=== PATIENT | male | born 1970 | race Caucasian/White ===

== ENCOUNTER 2016-08-16 08:28 | Emergency (ER) | payer OTHER ==
--- NOTE | 2016-08-16 09:47 | RAD ---
Indication: Chest pain. Single frontal view of the chest performed at 0925 hours was reviewed. Comparison is made with previous exam dated March 14, 2014. No mediastinal shift is noted. Heart is of normal size and configuration. Lung locke appear clear. Patient is status post changed sternal thoracotomy. IMPRESSION: NO ACTIVE CARDIOPULMONARY DISEASE IS NOTED.
[2016-08-16 10:54] LABS: Hematocrit 35 % (42-52); Hemoglobin 12.1 g/dl (14.0-18.0); Mean Corpuscular HGB Conc 35 g/dl (31-36); Mean Corpuscular Hemoglobin 29 pg (27-31); Mean Corpuscular Volume 84 fL (80-94); Mean Platelet Volume 10 um3 (7.4-10.4); Red Blood Count 4.12 10^6/ul (4.0-5.4); Red Cell Distribution Width 13 % (10.5-15); White Blood Count 8.5 10^3/ul (3.5-10.8)
[2016-08-16 10:58] LABS: Comments Flag Yes
[2016-08-16 10:59] LABS: Add Diff/Slide Review? Slide Review Added
[2016-08-16 11:08] LABS: Albumin 3.9 g/dL (3.2-5.2); BUN/Creatinine Ratio 36.7 (8-20); Calcium 9.3 mg/dL (8.6-10.3); EGFR African American 135.2 (>60); EGFR Non-African American 105.1 (>60); Globulin 2.7 g/dL (2-4); Potassium 3.8 mmol/L (3.5-5.0); Total Bilirubin 1.3 mg/dL (0.2-1.0); Total Protein 6.6 g/dL (6.4-8.9)
[2016-08-16 11:09] LABS: Troponin I 0.01 ng/mL (<0.04)
[2016-08-16 11:33] LABS: C Reactive Protein 21.28 mg/L (< 5.00)
[2016-08-16 13:24] LABS: Erythrocyte Sed Rate 19 mm/Hr (0-14)
[2016-08-16 14:11] VITALS: BP 106/71
--- NOTE | 2016-08-18 20:09 | ED ---
Mk Roa Salem, scribed for Henry Bauer MD on 08/16/16 at 1022 . HPI Chest Pain - HPI Summary HPI Summary: Patient is a 72 y/o male who presents to the ED with intermittent mild to moderate CP for a week. He reports CP returned this yesterday, but he has no pain currently. He describes the pain as achy, but not sharp and localized on the left side. Pain is worsened with exertion (lifting 25lbs dog). He denies vomiting or nausea, but reports a low fever of 100. He reports taking Ibuprofen for pericarditis with little alleviation of pain. He had surgery in 2013 and fell on his chest a year after the surgery. Pt has had pericarditis since. - History of Current Complaint Chief Complaint: EDChestWallPain Time Seen by Provider: 08/16/16 09:04 Hx Obtained From: Patient Onset/Duration: Started Days Ago Timing: Intermittent Initial Severity: Moderate Current Severity: Moderate Pain Intensity: 1 Pain Scale Used: 0-10 Numeric Chest Pain Location: Left Anterior Character: Dull/Aching Aggravating Factor(s): Exertion Alleviating Factor(s): Nothing Associated Signs and Symptoms: Positive: Fever - Subjective fever of 100F.. Negative: Nausea, Vomiting - Allergy/Home Medications Allergies/Adverse Reactions: Allergies Allergy/AdvReac Type Severity Reaction Status Date / Time Penicillins Allergy Unknown Unknown Verified 10/25/14 14:36 Reaction Details "CILLINS" Allergy Unknown Unknown Uncoded 10/25/14 14:36 Reaction Details PMH/Surg Hx/FS Hx/Imm Hx Cardiovascular History: Reports: Other Cardiovascular Problems/Disorders - AORTIC STENOSIS Denies: Hx Congestive Heart Failure, Hx Hypertension, Hx Pacemaker/ICD GI History: Reports: Hx Gastroesophageal Reflux Disease Musculoskeletal History: Reports: Hx Back Problems - Cancer History Hx Chemotherapy: No Hx Radiation Therapy: No Hx Palliative Cancer Treatment: No - Surgical History Surgery Procedure, Year, and Place: aortic valve replacement. open heart surgery 12/2013 Hx Anesthesia Reactions: No Infectious Disease History: No Infectious Disease History: Denies: Traveled Outside the [place] in Last 30 Days - Family History Known Family History: Negative: Cardiac Disease, Diabetes - Social History Alcohol Use: None Hx Substance Use: No Substance Use Type: Reports: None Hx Tobacco Use: No Smoking Status (MU): Never Smoked Tobacco Have You Smoked in the Last Year: No Review of Systems Positive: Fever - Mild - 100F. Positive: Chest Pain Negative: Vomiting, Nausea All Other Systems Reviewed And Are Negative: Yes Physical Exam Triage Information Reviewed: Yes Vital Signs On Initial Exam: Initial Vitals Temp Pulse Resp BP Pulse Ox 99.8 F 57 18 122/76 99 08/16/16 08:38 08/16/16 08:38 08/16/16 08:38 08/16/16 08:38 08/16/16 08:38 Vital Signs Reviewed: Yes Appearance: Positive: Well-Appearing, No Pain Distress Skin: Positive: Warm, Skin Color Reflects Adequate Perfusion, Dry Head/Face: Positive: Normal Head/Face Inspection Eyes: Positive: Normal Neck: Positive: Supple, Nontender Respiratory/Lung Sounds: Positive: Other - Murmur. Loud holistically transmitted to neck and all over chest. Cardiovascular: Positive: RRR Abdomen Description: Positive: Nontender, Soft Bowel Sounds: Positive: Present Musculoskeletal: Positive: Normal Neurological: Positive: Normal Psychiatric: Positive: Normal, Affect/Mood Appropriate Diagnostics - Vital Signs Vital Signs Temp Pulse Resp BP Pulse Ox 08/16/16 08:38 99.8 F 57 18 122/76 99 - Laboratory Lab Results: Lab Results 08/16/16 08/16/16 08/16/16 Range/Units 10:18 10:18 10:18 WBC 8.5 (3.5-10.8) 10^3/ul RBC 4.12 (4.0-5.4) 10^6/ul Hgb 12.1 L (14.0-18.0) g/dl Hct 35 L (42-52) % MCV 84 (80-94) fL MCH 29 (27-31) pg MCHC 35 (31-36) g/dl RDW 13 (10.5-15) % Plt Count 98 L (150-450) 10^3/ul MPV 10 (7.4-10.4) um3 Neut % (Auto) 80.4 (38-83) % Lymph % (Auto) 11.6 L (25-47) % [place] % (Auto) 7.6 (1-9) % Eos % (Auto) 0.2 (0-6) % Baso % (Auto) 0.2 (0-2) % Absolute Neuts (auto) 6.8 (1.5-7.7) 10^3/ul Absolute Lymphs (auto) 1.0 (1.0-4.8) 10^3/ul Absolute Monos (auto) 0.6 (0-0.8) 10^3/ul Absolute Eos (auto) 0 (0-0.6) 10^3/ul Absolute Basos (auto) 0 (0-0.2) 10^3/ul Absolute Nucleated RBC 0 10^3/ul Nucleated RBC % 0 ESR 19 H (0-14) mm/Hr D-Dimer, Quantitative (Less Than 230) ng/mL Sodium 137 (133-145) mmol/L Potassium 3.8 (3.5-5.0) mmol/L Chloride 105 (101-111) mmol/L Carbon Dioxide 24 (22-32) mmol/L Anion Gap 8 (2-11) mmol/L BUN 29 H (6-24) mg/dL Creatinine 0.79 (0.67-1.17) mg/dL Est GFR ( Amer) 135.2 (>60) Est GFR (Non-Af Amer) 105.1 (>60) BUN/Creatinine Ratio 36.7 H (8-20) Glucose 86 (70-100) mg/dL Lactic Acid 0.5 (0.5-2.0) mmol/L Calcium 9.3 (8.6-10.3) mg/dL Total Bilirubin 1.30 H (0.2-1.0) mg/dL AST 26 (13-39) U/L ALT 44 (7-52) U/L Alkaline Phosphatase 86 (34-104) U/L Total Creatine Kinase 53 (10-223) U/L CK-MB (CK-2) 2.3 (0.6-6.3) ng/mL Troponin I 0.01 (<0.04) ng/mL C-Reactive Protein 21.28 H (< 5.00) mg/L B-Natriuretic Peptide ( - 100) pg/mL Total Protein 6.6 (6.4-8.9) g/dL Albumin 3.9 (3.2-5.2) g/dL Globulin 2.7 (2-4) g/dL Albumin/Globulin Ratio 1.4 (1-3) 08/16/16 08/16/16 Range/Units 10:18 10:18 WBC (3.5-10.8) 10^3/ul RBC (4.0-5.4) 10^6/ul Hgb (14.0-18.0) g/dl Hct (42-52) % MCV (80-94) fL MCH (27-31) pg MCHC (31-36) g/dl RDW (10.5-15) % Plt Count (150-450) 10^3/ul MPV (7.4-10.4) um3 Neut % (Auto) (38-83) % Lymph % (Auto) (25-47) % [place] % (Auto) (1-9) % Eos % (Auto) (0-6) % Baso % (Auto) (0-2) % Absolute Neuts (auto) (1.5-7.7) 10^3/ul Absolute Lymphs (auto) (1.0-4.8) 10^3/ul Absolute Monos (auto) (0-0.8) 10^3/ul Absolute Eos (auto) (0-0.6) 10^3/ul Absolute Basos (auto) (0-0.2) 10^3/ul Absolute Nucleated RBC 10^3/ul Nucleated RBC % ESR (0-14) mm/Hr D-Dimer, Quantitative < 200 (Less Than 230) ng/mL Sodium (133-145) mmol/L Potassium (3.5-5.0) mmol/L Chloride (101-111) mmol/L Carbon Dioxide (22-32) mmol/L Anion Gap (2-11) mmol/L BUN (6-24) mg/dL Creatinine (0.67-1.17) mg/dL Est GFR ( Amer) (>60) Est GFR (Non-Af Amer) (>60) BUN/Creatinine Ratio (8-20) Glucose (70-100) mg/dL Lactic Acid (0.5-2.0) mmol/L Calcium (8.6-10.3) mg/dL Total Bilirubin (0.2-1.0) mg/dL AST (13-39) U/L ALT (7-52) U/L Alkaline Phosphatase (34-104) U/L Total Creatine Kinase (10-223) U/L CK-MB (CK-2) (0.6-6.3) ng/mL Troponin I (<0.04) ng/mL C-Reactive Protein (< 5.00) mg/L B-Natriuretic Peptide 121 H ( - 100) pg/mL Total Protein (6.4-8.9) g/dL Albumin (3.2-5.2) g/dL Globulin (2-4) g/dL Albumin/Globulin Ratio (1-3) Result Diagrams: 08/16/16 10:18 08/16/16 10:18 Lab Statement: Any lab studies that have been ordered have been reviewed, and results considered in the medical decision making process. - Radiology CXR Radiology Interpretation Completed By: Radiologist - IMPRESSION: NO ACTIVE CARDIOPULMONARY DISEASE IS NOTED. - EKG 0829 Cardiac Rate: Bradycardia - 60 bpm. EKG Interpretation: Sinus bradycardia. Diffuse nonspecific ST/T changes Re-Evaluation - Re-Evaluation First Eval Re-Evaluation Time: 13:53 Comment: Discussed results and plan with pt. Pt is agreable. Chest Pain Course/Dx - Course Course Of Treatment: Mr. Fela Kim's main concern was whether or not he had a recurrenco of his pericarditis. His W/U here showed only a very slight elevation of ESR and CRP and I recommended that he use ibuprofen transiently. - Diagnoses Provider Diagnoses: Chest wall pain Discharge - Discharge Plan Condition: Stable Disposition: HOME Patient Education Materials: Ibuprofen (By mouth), Chest Wall Pain (ED) Referrals: Nancy Reis MD [Primary Care Provider] - Additional Instructions: Follow up with PCP. The documentation as recorded by the Mk ramos Salem accurately reflects the service I personally performed and the decisions made by me, Henry Bauer MD.
== END 2016-08-16 14:11 | disposition home or self-care (01) ==
LOC: ED 08:28
DX: R07.89 Other chest pain (principal); R50.9 Fever, unspecified
CPT/HCPCS: 36415; 71010; 80053; 82550; 82553; 83605; 83880; 84484; 85025; 85379; 85652; 86140; 93005; 99282

== ENCOUNTER 2016-09-20 16:28 | Inpatient (IN) | payer OTHER ==
[2016-09-20 18:22] LABS: BUN/Creatinine Ratio 21.6 (8-20); C Reactive Protein 24.52 mg/L (< 5.00); Calcium 9.4 mg/dL (8.6-10.3); EGFR African American 119.4 (>60); EGFR Non-African American 92.8 (>60); Potassium 3.9 mmol/L (3.5-5.0)
[2016-09-20 18:26] LABS: Hematocrit 34 % (42-52); Hemoglobin 11.2 g/dl (14.0-18.0); Mean Corpuscular HGB Conc 33 g/dl (31-36); Mean Corpuscular Hemoglobin 27 pg (27-31); Mean Corpuscular Volume 83 fL (80-94); Mean Platelet Volume 9 um3 (7.4-10.4); Red Blood Count 4.08 10^6/ul (4.0-5.4); Red Cell Distribution Width 14 % (10.5-15); White Blood Count 8.4 10^3/ul (3.5-10.8)
[2016-09-20] MEDS ORDERED: Acetaminophen TAB* 325 MG PO PRN (18:39)
[2016-09-20] MEDS ORDERED: Metoprolol Tartrate TAB* 50 mg PO SCH (21:00)
--- NOTE | 2016-09-20 21:46 | ED ---
Mk Roa Salem, scribed for Henry Bauer MD on 09/20/16 at 1752 . HPI Febrile Illness - HPI Summary HPI Summary: Patient is a 46 y/o male who presents to the ED with a positive blood culture since yesterday. He reports he was in the ER in early August with muscular skeletal inflammation. He states that his sx persisted after being seen and then put on Zithromax for bronchitis. He reports that his sx continued after finishing the abx and so he saw his PCP yesterday. Pt reports pain in his back, shoulders, and lateral chest area. - History of Current Complaint Chief Complaint: EDFever Time Seen by Provider: 09/20/16 17:33 Hx Obtained From: Patient Onset/Duration: Started Days Ago, Still Present Timing: Constant Initial Severity: Moderate Current Severity: Moderate Pain Intensity: 2 Pain Scale Used: 0-10 Numeric Aggravating Factors: Nothing Alleviating Factors: Nothing Associated Signs and Symptoms: Other: - Pain in back, shoulders, and lateral chest area. - Allergy/Home Medications Allergies/Adverse Reactions: Allergies Allergy/AdvReac Type Severity Reaction Status Date / Time Penicillins Allergy Unknown Unknown Verified 09/20/16 16:40 Reaction Details "CILLINS" Allergy Unknown Unknown Uncoded 09/20/16 16:40 Reaction Details Home Medications: Home Medications Colchicine* [Colcrys*] 0.6 mg PO DAILY PRN 09/20/16 [History Confirmed 09/20/16] Ergocalciferol CAP* [Drisdol CAP*] 50,000 unit PO Q7D 09/20/16 [History Confirmed 09/20/16] Ibuprofen TAB* [Advil TAB*] 400 mg PO Q6H PRN 09/20/16 [History Confirmed ] Magnesium Oxide TAB* [MagOx 400 TAB*] 400 mg PO DAILY 09/20/16 [History Confirmed 09/20/16] Metoprolol Tartrate TAB* [Lopressor TAB*] 25 mg PO BID 09/20/16 [History Confirmed 09/20/16] Multiple Vitamins W/ Minerals [Multivitamin Men] 1 tab PO DAILY 09/20/16 [ History Confirmed 09/20/16] [place]-3 Fatty Acids (Nf) [Fish Oil (NF)] 1,000 mg PO DAILY 09/20/16 [History Confirmed 09/20/16] Potassium 75 mg PO DAILY 09/20/16 [History Confirmed 09/20/16] PMH/Surg Hx/FS Hx/Imm Hx Cardiovascular History: Reports: Other Cardiovascular Problems/Disorders - AORTIC STENOSIS Denies: Hx Congestive Heart Failure, Hx Hypertension, Hx Pacemaker/ICD GI History: Reports: Hx Gastroesophageal Reflux Disease Musculoskeletal History: Reports: Hx Back Problems - Cancer History Hx Chemotherapy: No Hx Radiation Therapy: No Hx Palliative Cancer Treatment: No - Surgical History Surgery Procedure, Year, and Place: aortic valve replacement. open heart surgery 12/2013 Hx Anesthesia Reactions: No Infectious Disease History: No Infectious Disease History: Denies: Traveled Outside the [place] in Last 30 Days - Family History Known Family History: Negative: Cardiac Disease, Diabetes - Social History Alcohol Use: None Hx Substance Use: No Substance Use Type: Reports: None Hx Tobacco Use: No Smoking Status (MU): Never Smoked Tobacco Have You Smoked in the Last Year: No Review of Systems Positive: Fever Positive: Other - Pain in back, shoulders, and lateral chest area. All Other Systems Reviewed And Are Negative: Yes Physical Exam Triage Information Reviewed: Yes Vital Signs On Initial Exam: Initial Vitals Temp Pulse Resp BP Pulse Ox 98.5 F 63 16 132/74 100 09/20/16 16:41 09/20/16 16:41 09/20/16 16:41 09/20/16 16:41 09/20/16 16:41 Vital Signs Reviewed: Yes Appearance: Positive: Well-Appearing, No Pain Distress Skin: Positive: Warm, Skin Color Reflects Adequate Perfusion, Dry Head/Face: Positive: Normal Head/Face Inspection Eyes: Positive: Normal Neck: Positive: Supple, Nontender Respiratory/Lung Sounds: Positive: Clear to Auscultation, Breath Sounds Present Cardiovascular: Positive: Other - Soft systolic ejection Abdomen Description: Positive: Nontender, Soft Bowel Sounds: Positive: Present Musculoskeletal: Positive: Normal Neurological: Positive: Normal Psychiatric: Positive: Normal, Affect/Mood Appropriate Diagnostics - Vital Signs Vital Signs Temp Pulse Resp BP Pulse Ox 09/20/16 16:41 98.5 F 63 16 132/74 100 - Laboratory Lab Results: Lab Results 09/20/16 09/20/16 Range/Units 17:05 17:05 WBC 8.4 (3.5-10.8) 10^3/ul RBC 4.08 (4.0-5.4) 10^6/ul Hgb 11.2 L (14.0-18.0) g/dl Hct 34 L (42-52) % MCV 83 (80-94) fL MCH 27 (27-31) pg MCHC 33 (31-36) g/dl RDW 14 (10.5-15) % Plt Count 160 (150-450) 10^3/ul MPV 9 (7.4-10.4) um3 Neut % (Auto) 81.9 (38-83) % Lymph % (Auto) 10.5 L (25-47) % [place] % (Auto) 7.0 (1-9) % Eos % (Auto) 0.3 (0-6) % Baso % (Auto) 0.3 (0-2) % Absolute Neuts (auto) 6.9 (1.5-7.7) 10^3/ul Absolute Lymphs (auto) 0.9 L (1.0-4.8) 10^3/ul Absolute Monos (auto) 0.6 (0-0.8) 10^3/ul Absolute Eos (auto) 0 (0-0.6) 10^3/ul Absolute Basos (auto) 0 (0-0.2) 10^3/ul Absolute Nucleated RBC 0 10^3/ul Nucleated RBC % 0 Sodium 135 (133-145) mmol/L Potassium 3.9 (3.5-5.0) mmol/L Chloride 103 (101-111) mmol/L Carbon Dioxide 28 (22-32) mmol/L Anion Gap 4 (2-11) mmol/L BUN 19 (6-24) mg/dL Creatinine 0.88 (0.67-1.17) mg/dL Est GFR ( Amer) 119.4 (>60) Est GFR (Non-Af Amer) 92.8 (>60) BUN/Creatinine Ratio 21.6 H (8-20) Glucose 88 (70-100) mg/dL Calcium 9.4 (8.6-10.3) mg/dL C-Reactive Protein 24.52 H (< 5.00) mg/L Result Diagrams: 09/20/16 17:05 09/20/16 17:05 Lab Statement: Any lab studies that have been ordered have been reviewed, and results considered in the medical decision making process. Course/Dx - Course Course Of Treatment: Mr. Fela Kim has continued to have vague chest pain inspite of taking a course of anti-inflammatories and the a course of antibiotics. He reports low grade fevers and blood cultures were obtained by his PMD. A transthoracic echo was obtained and unchanged this AM and his blood culture preliminary is gram pos cocci in chains. He will be admitted for a transesophageal echo tomorrow and antibiotics with the concern for a possible endocarditis. - Diagnoses Provider Diagnoses: STREP BACTEREMIA - Provider Notifications Discussed Care Of Patient With: Dr. Reed (cardiology) @ [id number]. Dr. Mcdaniel ( hospitalist) @ [phone]. Discussed pts case. Discharge - Discharge Plan Condition: Stable Disposition: ADMITTED TO [facility] The documentation as recorded by the Mk ramos Salem accurately reflects the service I personally performed and the decisions made by , Henry Bauer MD.
[2016-09-20] MEDS: Metoprolol Tartrate TAB* 25 MG PO SCH (21:54)
[2016-09-20] MEDS: Ibuprofen TAB* 600 MG PO PRN (21:54)
--- NOTE | 2016-09-20 23:21 | HP ---
HOSPITAL MEDICINE HISTORY AND PHYSICAL: DATE OF ADMISSION: 09/20/16 PRIMARY CARE PROVIDER: Dr. Reis. ATTENDING PHYSICIAN: JNEI Mario (dictation provided by Catrina Marinelli NP) . CHIEF COMPLAINT: Fever and mild chest discomfort. HISTORY OF PRESENT ILLNESS: Mr. Fela Kim is a 46-year-old male with a past medical history of aortic valve replacement due to a bicuspid valve with a severe aortic stenosis. Back in 2013, the patient had a bioprosthetic valve placed. 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 He is followed outpatient by Dr. Fletcher. Mr. Fela Kim states that on August 05 he developed fever. Fever has been as high as 101. He has had ongoing fever since that time. He has had very mild discomfort in his chest and in his back, but nothing like the sharp pain he had when he had pericarditis. He has been able to lie flat with no problems. He has had no lower extremity edema. For this fever, he was seen in the emergency room on August 16. At that time he had a normal white blood cell count and essentially normal C-reactive protein. He was discharged from the emergency room. He did follow up with his primary care physician in 2 weeks when he continued to have fever. He saw someone in Dr. Reis's office. He thought perhaps he had a bronchitis based on his symptoms and he was started on azithromycin and told to return to the office if he did not feel better in 2 weeks. When he had no change, he went back to see Dr. Reis, who recommended that he come to have blood cultures drawn at the lab here at the hospital and also go on to see Dr. Fletcher for a transthoracic echocardiogram. Blood cultures were drawn yesterday. Today they have been found to be positive x 4 for gram-positive cocci resembling strep. The patient did see Dr. Fletcher for a transthoracic echocardiogram and per the verbal report, the aortic valve was functioning normally and no vegetation noted. In the emergency room today, Mr. Fela Kim has a C-reactive protein of 24.52. His white blood cell count is normal. His vitals signs are stable. He is breathing easily on room air. He has no significant systolic murmur. PAST MEDICAL HISTORY: 1. Bioprosthetic aortic valve replacement in 2013 at [facility]. 2. History of Deborah syndrome. 3. GERD. 4. Thoracic aneurysm. OUTPATIENT MEDICATIONS: 1. Magnesium oxide 250 mg p.o. b.i.d. 2. Colchicine 0.6 mg p.o. daily p.r.n. 3. Ergocalciferol 50,000 units p.o. q.7 days. 4. Glucosamine/chondroitin/vitamin C 1 tab p.o. daily. 5. Ibuprofen 400 mg p.o. q.6 hours p.r.n. 6. Multivitamin and mineral 1 tab p.o. daily. 7. [place]-3 fatty acid 1000 mg p.o. daily. 8. Potassium 75 mg p.o. daily. 9. Psyllium with calcium 1 cap p.o. b.i.d. 10. Famotidine 20 mg p.o. daily. 11. Metoprolol tartrate 25 mg p.o. b.i.d. ALLERGIES: PENICILLIN. FAMILY HISTORY: The patient reports there is no significant family history of heart disease or illnesses. His grandmother lived to old age. No significant history in the family. SOCIAL HISTORY: No report of tobacco, alcohol or drug use. The patient lives with his , who is the healthcare proxy. REVIEW OF SYSTEMS: A 14-point review of systems is completed with Mr. Fela Kim and all those not mentioned above were negative. PHYSICAL EXAMINATION GENERAL: Mr. Fela Kim is sitting up and reading a book. He is in no acute distress. VITAL SIGNS: Temperature 98.9, pulse rate 61, respiratory rate 20, O2 saturation 100% on room air, blood pressure 115/74. LUNGS: Clear to auscultation bilaterally with no accessory muscle use and good aeration. HEART: S1, S2. No murmurs, rubs, or gallops. Regular. ABDOMEN: Soft and nontender with bowel sounds positive x4. EXTREMITIES: No cyanosis or edema. SKIN: Intact. NEUROLOGIC: He is alert and oriented x3. He moves all extremities equally. There is no facial asymmetry or focal weakness. Extraocular movements are intact. ASSESSMENT: Mr. Fela Kim is a 46-year-old male with past medical history of bioprosthetic aortic valve placement in 2013 for aortic stenosis and bicuspid valve as well as Deborah syndrome who presents to the hospital today with ongoing fever x7 weeks plus mild chest discomfort. He has been found to have bacteremia with likely strep in all 4 bottles as of yesterday. Our plans are for him to be admitted to the hospital for the followin. Strep bacteremia. There is high suspicion this is related to his bioprosthetic aortic valve. The patient has had a transthoracic echocardiogram which did not show vegetation. Plan is for him to go to transesophageal echocardiogram tomorrow, Dr. Reed is aware. The patient will be n.p.o. after midnight. The patient will have 2 g ceftriaxone q.[address] Tijerina will be seeing the patient in consultation tomorrow. Repeat blood cultures have been drawn. The patient is stable. Again, the transthoracic echocardiogram fails to show any valvular abnormality at this time and it seems to be functioning well. 2. DVT prophylaxis with early mobility with disposition to telemetry floor. TIME SPENT: Approximately 60 minutes were spent on the admission of this patient, more than half the time spent with him at the bedside reviewing the events leading up to this hospitalization, performing the physical examination, and reviewing my plan of care. CATRINA MARINELLI NP CC: Dr. Reis* [id number]/[facility] #: [id number] SHAVONNE
[2016-09-21 05:17] LABS: Hematocrit 32 % (42-52); Hemoglobin 10.7 g/dl (14.0-18.0); Mean Corpuscular HGB Conc 33 g/dl (31-36); Mean Corpuscular Hemoglobin 28 pg (27-31); Mean Corpuscular Volume 82 fL (80-94); Mean Platelet Volume 9 um3 (7.4-10.4); Red Cell Distribution Width 14 % (10.5-15); White Blood Count 6.8 10^3/ul (3.5-10.8)
[2016-09-21 05:33] LABS: Albumin 3.3 g/dL (3.2-5.2); BUN/Creatinine Ratio 19.8 (8-20); EGFR African American 131.4 (>60); EGFR Non-African American 102.1 (>60); Potassium 3.7 mmol/L (3.5-5.0); Total Bilirubin 0.8 mg/dL (0.2-1.0); Total Protein 6.3 g/dL (6.4-8.9)
[2016-09-21] MEDS ORDERED: fentaNYL* 50 MCG/ML 2 ML VIAL (100 MCG VIAL) ONE ×2 (10:37→11:24)
[2016-09-21] MEDS ORDERED: Lidocaine 2% VISCOUS* 15 ML UDC ONE (10:37)
[2016-09-21] MEDS ORDERED: Midazolam* 1 MG/ML 5 ML VIAL (5 MG) ONE (10:37)
[2016-09-21] MEDS ORDERED: Flumazenil* 0.1 MG/ML 5 ML MDV ONE (10:37)
[2016-09-21] MEDS ORDERED: Vancomycin per Pharmacy* NOTE FOLLOW UP PRN (11:18)
[2016-09-21] MEDS ORDERED: Vancomycin(*) 1,500 MG in NS 0.9% 250 ML* 250 ML IVPB ONE (12:00)
[2016-09-21] MEDS: Famotidine TAB* 20 MG PO SCH (13:02)
[2016-09-21] MEDS: Metoprolol Tartrate TAB* 25 MG PO SCH ×2 (13:02→20:55)
[2016-09-21] MEDS: Magnesium Oxide TAB* 400 MG PO SCH (13:02)
--- NOTE | 2016-09-21 13:31 | TEE ---
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 Left Ventricle: The left ventricular chamber size is normal. Global left ventricular wall motion and contractility are within normal limits. There is normal left ventricular systolic function. The estimated ejection fraction is 60-65%. Post surgical hypokinesis of the interventricular septum is observed consistent with valve replacement. Left Atrium: The left atrium is mildly dilated. There is no thrombus visualized in the left atrial appendage. Right Ventricle: The right ventricular chamber size and systolic function are within normal limits. Right Atrium: The right atrial cavity size is normal. Aortic Valve: There is mild to moderate aortic regurgitation. that is intravalvular. There is no paravalvular regurgitation noted. There is at least mild thickening of the bioprosthetic leaflet adjacent to the left left atrium. This was not present on prior KATHI. In the setting of + blood cultures, this could be consistent with infective endocarditis. The mean gradient of the aortic valve is 46 mmHg. The peak velocity is 4.3 m/s. Dimensionless index 0.315. Velocity peak is rounded with acceleration time of 126.68 msec. The aortic valve leaflets appear to open adequately. The velocity and gradient are similar to prior KATHI 03/16/2014. There is a #21 [place] tissue valve bioprosthetic by history. Findings most consistent with patient-prosthesis mismatch. A bio-prosthetic aortic valve is present. There is thickening of the mitral-aortic intervalvular fibrosa that is not significantly changed from KATHI on 03/2014. There is no obvious visualization of an abscess. Mitral Valve: The mitral valve leaflets are mildly thickened.with mild calcification of the valve leaflets There is mild mitral regurgitation. There is no evidence of mitral stenosis. No vegetation is observed on the mitral valve. Tricuspid Valve: The tricuspid valve leaflets are normal. There is trace to mild tricuspid regurgitation. There is no tricuspid stenosis. No vegetation is observed on the tricuspid valve. Pulmonic Valve: The pulmonic valve appears normal. There is a trace pulmonic regurgitation. There is no pulmonic stenosis. No vegetation is observed on the pulmonic valve. Pericardium: There is no significant pericardial effusion. Aorta: There is no dilatation of the ascending aorta. The aortic root is normal in size.There is minimal atherosclerotic plaque seen in the aorta. Pulmonary Artery: The main pulmonary artery appears normal. Venous: The venous system is not well visualized. KATHI Procedures: All standard views were attempted within the limitations of patient tolerance and safety. History and physical as well as labs were reviewed. The patient was in a fasting state. Risks and benefits of the procedure, including alternatives, were discussed and written informed consent was obtained. The patient and/or their health care product support representative expressed understanding of the procedure, risks and benefits. Baseline and continuous monitoring of blood pressure, heart rate, pulse oximetry and heart rhythm was performed throughout the procedure. The appropriate time-out procedure was performed as per [facility] protocol. The patient was placed in the left lateral decubitus position. The patient's posterior pharynx was anesthetized with 20ml of 2% viscous lidocaine. The patient received IV Midazolam with a total dose of 9 mg. The patient received IV Fentanyl with a total dose of 125 mcg. An oral bite block was inserted for protection of oral dentition. The multiplane transesophageal echocardiogram probe was inserted through the posterior oropharynx and advanced into the esophagus without difficulty. Multiple 2D images were obtained of the heart and its related structures. Color flow Doppler was used for evaluation. Spectral Doppler was also used. At the conclusion of the procedure the probe was removed with continuous suction without complications. The patient tolerated the procedure with no apparent complications. Conclusions The left ventricular chamber size is normal. There is normal left ventricular systolic function. The estimated ejection fraction is 60-65%. The left atrium is mildly dilated. The right ventricular chamber size and systolic function are within normal limits. There is a #21 [facility] tissue valve bioprosthetic by history. Findings most consistent with patient-prosthesis mismatch. There is no paravalvular regurgitation noted. There is thickening of the mitral-aortic intervalvular fibrosa that is not significantly changed from KATHI on 03/2014. There is at least mild thickening of the bioprosthetic leaflet adjacent to the left atrium. This was not present on prior KATHI from 03/2014. In the setting of positive blood cultures, this could be consistent with infective endocarditis. There is mild to moderate aortic regurgitation that is intravalvular. This was not present on KATHI from 03/2014. This was seen on TTE's starting in 2014. The significance of this to patients current condition is uncertain. Measurements Name Value Normal Range Aortic Annulus 2.3 cm (1.4 - 2.6) Ao root diameter (2D) 3 cm (2.1 - 3.5) Ascending Ao 3.4 cm (2.1 - 3.4) Name Value Normal Range AV Vmax 4.3 m/sec - AV VTI 92.8 cm - AV peak gradient 74 mmHg - AV mean gradient 46 mmHg - LVOT Vmax 1.4 m/sec - LVOT VTI 29.1 cm - LVOT peak gradient 7 mmHg - LVOT mean gradient 4.5 mmHg - DOI (VTI) 3.1 ratio - DOI (Vmax) 3.3 ratio -
--- NOTE | 2016-09-21 14:23 | PN ---
Subjective Date of Service: 09/21/16 Interval History: Pt is feeling well. He had an episode of chest discomfort earlier today. It was self limited. No SOB. Objective Active Medications: Acetaminophen (Tylenol Tab*) 650 mg PO Q6H PRN PRN Reason: PAIN Famotidine (Pepcid Tab*) 20 mg PO DAILY [facility] Last Admin: 09/21/16 13:02 Dose: 20 mg Ceftriaxone Sodium 2 gm/ (Sodium Chloride) 100 mls @ 200 mls/hr IVPB Q24H [facility] Last Admin: 09/20/16 18:51 Dose: 200 mls/hr Vancomycin HCl 1,000 mg/ (Sodium Chloride) 250 mls @ 166.667 mls/hr IVPB Q6H [facility] Ibuprofen (Motrin Tab*) 600 mg PO Q6H PRN PRN Reason: pain/fever Last Admin: 09/20/16 21:54 Dose: 600 mg Magnesium Oxide (Magox 400 Tab*) 400 mg PO DAILY [facility] Last Admin: 09/21/16 13:02 Dose: 400 mg Metoprolol Tartrate (Lopressor Tab*) 25 mg PO BID [facility] Last Admin: 09/21/16 13:02 Dose: Not Given Pharmacy Consult (Vancomycin Per Pharmacy*) 1 note FOLLOW UP . PRN PRN Reason: PER PROTOCOL Pharmacy Profile Note (Vancomycin Trough Check) 1 note FOLLOW UP ONCE ONE Stop: 09/23/16 07:31 Vital Signs 09/20/16 09/20/16 09/20/16 18:00 18:07 18:30 Temperature Pulse Rate 62 61 Respiratory 19 22 Rate Blood Pressure 114/70 115/74 (mmHg) O2 Sat by Pulse 100 100 Oximetry 09/20/16 09/20/16 09/20/16 18:41 19:00 19:20 Temperature 98.9 F 99.8 F Pulse Rate 61 68 60 Respiratory 23 22 20 Rate Blood Pressure 115/74 131/71 122/78 (mmHg) O2 Sat by Pulse 99 100 100 Oximetry 09/20/16 09/21/16 09/21/16 22:03 00:43 03:31 Temperature 99.4 F 98.4 F Pulse Rate 63 72 57 Respiratory 20 20 Rate Blood Pressure 110/57 94/58 (mmHg) O2 Sat by Pulse 98 100 Oximetry 09/21/16 12:40 Temperature 98.8 F Pulse Rate 59 Respiratory 16 Rate Blood Pressure 102/62 (mmHg) O2 Sat by Pulse 100 Oximetry Oxygen Devices in Use Now: None Appearance: Middle aged thin male sitting up in bed NAD Eyes: No Scleral Icterus Ears/Nose/Mouth/Throat: Mucous Membranes Moist Respiratory: Symmetrical Chest Expansion and Respiratory Effort, Clear to Auscultation Cardiovascular: RRR, No Edema, - - III/ systolic murmur heard best at the RUSB Abdominal: NL Sounds; No Tenderness; No Distention Extremities: No Clubbing, Cyanosis Skin: No Rash or Ulcers, No Nodules or Sclerosis Neurological: Alert and Oriented x 3 Result Diagrams: 09/21/16 04:26 09/21/16 04:26 Additional Lab and Data: Lab Results 09/20/16 09/20/16 Range/Units 17:05 17:05 WBC 8.4 (3.5-10.8) 10^3/ul RBC 4.08 (4.0-5.4) 10^6/ul Hgb 11.2 L (14.0-18.0) g/dl Hct 34 L (42-52) % MCV 83 (80-94) fL MCH 27 (27-31) pg MCHC 33 (31-36) g/dl RDW 14 (10.5-15) % Plt Count 160 (150-450) 10^3/ul MPV 9 (7.4-10.4) um3 Neut % (Auto) 81.9 (38-83) % Lymph % (Auto) 10.5 L (25-47) % [place] % (Auto) 7.0 (1-9) % Eos % (Auto) 0.3 (0-6) % Baso % (Auto) 0.3 (0-2) % Absolute Neuts (auto) 6.9 (1.5-7.7) 10^3/ul Absolute Lymphs (auto) 0.9 L (1.0-4.8) 10^3/ul Absolute Monos (auto) 0.6 (0-0.8) 10^3/ul Absolute Eos (auto) 0 (0-0.6) 10^3/ul Absolute Basos (auto) 0 (0-0.2) 10^3/ul Absolute Nucleated RBC 0 10^3/ul Nucleated RBC % 0 Sodium 135 (133-145) mmol/L Potassium 3.9 (3.5-5.0) mmol/L Chloride 103 (101-111) mmol/L Carbon Dioxide 28 (22-32) mmol/L Anion Gap 4 (2-11) mmol/L BUN 19 (6-24) mg/dL Creatinine 0.88 (0.67-1.17) mg/dL Est GFR ( Amer) 119.4 (>60) Est GFR (Non-Af Amer) 92.8 (>60) BUN/Creatinine Ratio 21.6 H (8-20) Glucose 88 (70-100) mg/dL Calcium 9.4 (8.6-10.3) mg/dL C-Reactive Protein 24.52 H (< 5.00) mg/L Assess/Plan/Problems-Billing Mr Fela Kim is a 46 yo M who has a h/o a bioprosthetic aortic valve replacement, h/o kayode syndrome and GERD who presented to the ER at the request of Dr. 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 - Patient Problems (1) Bacteremia Current Visit: Yes Status: Acute Code(s): R78.81 - BACTEREMIA SNOMED Code( s): 1838257 Comment: The patient was found to have 4 of 4 bottles positive for gram positive cocci resembling strep. He underwent a transthoracic echo that did not reveal any concerning findings and was referred to the ER for admission for a transesophageal echo and management of his bacteremia. Repeat blood cultures from last evening are negative so far. The KATHI did not show a clear vegetation however there is at least mild thickening of the aortic valve leaflet adjacent to the left atrium. Will likely need to treat as if this is endocarditis. Dr. Tijerina added vancomycin to his regimen to cover for enterococcus. Dr. Tijerina will formally consult [facility]. (2) GERD (gastroesophageal reflux disease) Current Visit: Yes Status: Acute Code(s): K21.9 - GASTRO-ESOPHAGEAL REFLUX DISEASE WITHOUT ESOPHAGITIS SNOMED Code(s): 872304652 Comment: Continue famotidine. (3) DVT prophylaxis Current Visit: Yes Status: Acute Code(s): OZV7359 - SNOMED Code(s): 983055383 Comment: Ambulation (4) Full code status Current Visit: Yes Status: Acute Code(s): Z78.9 - OTHER SPECIFIED HEALTH STATUS SNOMED Code(s): 488176693
[2016-09-21] MEDS: Vancomycin(*) 1,000 MG in NS 0.9% 250 ML* 250 ML IVPB SCH (20:53)
[2016-09-21] MEDS: Ibuprofen TAB* 600 MG PO PRN (21:00)
[2016-09-21] MEDS: Psyllium PAK PO SCH (21:57)
[2016-09-22] MEDS: Vancomycin(*) 1,000 MG in NS 0.9% 250 ML* 250 ML IVPB SCH ×4 (02:12→20:18)
[2016-09-22] MEDS: Magnesium Oxide TAB* 400 MG PO SCH (07:57)
[2016-09-22] MEDS: Psyllium PAK PO SCH ×2 (07:58→20:21)
[2016-09-22] MEDS: Famotidine TAB* 20 MG PO SCH (07:58)
[2016-09-22] MEDS: Metoprolol Tartrate TAB* 25 MG PO SCH (09:34)
[2016-09-22] MEDS: Ibuprofen TAB* 600 MG PO PRN ×2 (11:48→20:21)
--- NOTE | 2016-09-22 13:34 | CONS ---
CONSULTATION REPORT: DATE OF CONSULT: 09/22/16 REQUESTING PHYSICIAN: Dr. Mcdaniel. CONSULTING SERVICE: Infectious Disease. REASON FOR CONSULT: Streptococcal bacteremia in the setting of prosthetic valve. IMPRESSION: 1. Viridans group streptococcal bacteremia in the setting of 7 weeks of fever, malaise, and sweats with weight loss and a prosthetic aortic valve. No vegetation on KATHI, but by definition, this a pro sthetic valve endocarditis, there was some thickening of the bioprosthetic leaflet adjacent to the l eft atrium seen on the KATHI. [id number] aortic regurgitation. He has had ongoing fevers and p ersistent bacteremia. 2. Elevated C-reactive protein. 3. History of pericarditis postoperatively. RECOMMENDATIONS: 1. Continue vancomycin and ceftriaxone while awaiting susceptibility data for the Strep mutans. 2. Recheck blood cultures tomorrow. Once they are negative, he can have a PICC line. He will cont inue empiric antipyretics while waiting for these antibiotics to do their thing. I discussed with farhan fontaine possible complications which include worsening of valvular disease and congestive heart failure w hile on appropriate antibiotic, embolic events, and the symptoms to watch for all of which would nec essitate cardiothoracic surgery evaluation instead of antibiotics alone. 3. Chest x-ray. HISTORY OF PRESENT ILLNESS: This is a 46-year-old man with a history of bioprosthetic aortic valve replacement, admitted with fever. It had been going on for about 7 weeks with bilateral shoulder pa in, malaise, decreased appetite, fevers to 101 at home, improving with ibuprofen but not going away. He was seen by Dr. Reis as an outpatient after a course of azithromycin did not help. Blood cu ltures were taken on the and grew viridans strep. She contacted me about the patient. I recom mended admission, KATHI, antibiotic for the IV which he has had. He has had no fever here except for h e notes a fever of 103 last night which was not recorded. His energy and appetite were a little bit better. His CRP was 25 on admission. He has had a transesophageal echocardiogram and the findings are as noted above. He has had no abdominal pain or upper quadrant pain. His LFTs are totally nor mal. He has had no cough. PAST MEDICAL HISTORY: 1. Status post aortic valve replacement, the bioprosthetic valve in 2013 at [facility]. 2. Deborah syndrome. 3. Gastroesophageal reflux disease. 4. Thoracic aneurysm. MEDICATIONS: 1. Tylenol. 2. Famotidine. 3. Ibuprofen. 4. Metoprolol. 5. Ceftriaxone 2 g a day. 6. Vancomycin 1 g every 6 hours. ALLERGIES: PENICILLIN caused rash. FAMILY HISTORY: No recurrent infections. SOCIAL HISTORY: He lives in [place]. He is a marketing editor, works from home. No travel. No sick contacts. REVIEW OF SYSTEMS: A full review of systems was obtained, was negative other than noted above. PHYSICAL EXAM: Vital Signs: Temperature 36, heart rate 60, respiratory rate 16, blood pressure 90/ 60, and O2 sat 100% on room air. General: He is awake and nondistressed. Neurologic: He is orien timothy x3, follows all commands. Cranial nerves II through XII are intact. Strength is 5/5 in the bic eps, triceps, wrist flexor, extensor, quadriceps, tibialis anterior, and gastrocnemius bilaterally. Sensation is intact to light touch in the upper and lower extremities bilaterally. There is no lower extremity clonus. HEENT: There is no conjunctival hemorrhage. Oropharynx without lesions. Neck: Supple without nuchal rigidity. Lymph Nodes: There is no cervical, supraclavicular, inguinal, axill erickson, or epitrochlear lymphadenopathy. Heart has regular rate and rhythm with a 2/6 systolic murmur. Lungs are clear to auscultation bilaterally. Abdomen is soft, nontender, and nondistended. Skin: There is no rash or splinter hemorrhages. Musculoskeletal: No spine tenderness to palpation or karan nt synovitis. LABORATORY DATA: Creatinine 0.8. White blood cell count 7, hemoglobin 10, and platelets 129. Please see impressions and recommendations outlined above, which I have discussed with Dr. Mcdaniel. Thanks for asking me to see Beatrice Fela Kim in consultation. [id number]/[facility] #: [id number]
--- NOTE | 2016-09-22 14:55 | PN ---
Subjective Date of Service: 09/22/16 Interval History: Pt is feeling well. No CP or SOB. He had a fever overnight. Objective Active Medications: Acetaminophen (Tylenol Tab*) 650 mg PO Q6H PRN PRN Reason: PAIN Last Admin: 09/21/16 19:40 Dose: 650 mg Famotidine (Pepcid Tab*) 20 mg PO DAILY [facility] Last Admin: 09/22/16 07:58 Dose: 20 mg Ceftriaxone Sodium 2 gm/ (Sodium Chloride) 100 mls @ 200 mls/hr IVPB Q24H [facility] Last Admin: 09/21/16 19:43 Dose: 200 mls/hr Vancomycin HCl 1,000 mg/ (Sodium Chloride) 250 mls @ 166.667 mls/hr IVPB Q6H [facility] Last Admin: 09/22/16 14:09 Dose: 166.667 mls/hr Ibuprofen (Motrin Tab*) 600 mg PO Q6H PRN PRN Reason: pain/fever Last Admin: 09/22/16 11:48 Dose: 600 mg Magnesium Oxide (Magox 400 Tab*) 400 mg PO DAILY [facility] Last Admin: 09/22/16 07:57 Dose: 400 mg Metoprolol Tartrate (Lopressor Tab*) 25 mg PO BID [facility] Last Admin: 09/22/16 09:34 Dose: Not Given Pharmacy Consult (Vancomycin Per Pharmacy*) 1 note FOLLOW UP . PRN PRN Reason: PER PROTOCOL Pharmacy Profile Note (Vancomycin Trough Check) 1 note FOLLOW UP ONCE ONE Stop: 09/23/16 07:31 Psyllium Hydrophilic Mucilloid (Metamucil Alex*) 1 pkt PO BID [facility] Last Admin: 09/22/16 07:58 Dose: 1 pkt Vital Signs 09/21/16 09/21/16 09/21/16 15:17 19:32 20:00 Temperature 99.2 F 102.8 F Pulse Rate 62 72 Respiratory 20 17 17 Rate Blood Pressure 111/65 114/68 (mmHg) O2 Sat by Pulse 100 99 Oximetry 09/21/16 09/21/16 09/22/16 21:00 23:57 00:14 Temperature 101.2 F 98.4 F Pulse Rate 53 Respiratory 20 Rate Blood Pressure 89/62 96/56 (mmHg) O2 Sat by Pulse 100 Oximetry 09/22/16 09/22/16 09/22/16 03:39 07:27 08:00 Temperature 97.5 F 97.2 F Pulse Rate 48 57 Respiratory 20 16 16 Rate Blood Pressure 93/57 89/60 (mmHg) O2 Sat by Pulse 100 100 Oximetry 09/22/16 11:32 Temperature 98.6 F Pulse Rate 55 Respiratory 16 Rate Blood Pressure 110/68 (mmHg) O2 Sat by Pulse 100 Oximetry Oxygen Devices in Use Now: None Appearance: Middle aged male sitting in a chair, NAD Eyes: No Scleral Icterus Ears/Nose/Mouth/Throat: Mucous Membranes Moist Respiratory: Symmetrical Chest Expansion and Respiratory Effort, Clear to Auscultation Cardiovascular: NL Sounds; No Murmurs; No JVD, RRR, No Edema Abdominal: NL Sounds; No Tenderness; No Distention Extremities: No Clubbing, Cyanosis Skin: No Rash or Ulcers, No Nodules or Sclerosis Neurological: Alert and Oriented x 3 Result Diagrams: 09/21/16 04:26 09/21/16 04:26 Additional Lab and Data: Lab Results 09/20/16 09/20/16 Range/Units 17:05 17:05 WBC 8.4 (3.5-10.8) 10^3/ul RBC 4.08 (4.0-5.4) 10^6/ul Hgb 11.2 L (14.0-18.0) g/dl Hct 34 L (42-52) % MCV 83 (80-94) fL MCH 27 (27-31) pg MCHC 33 (31-36) g/dl RDW 14 (10.5-15) % Plt Count 160 (150-450) 10^3/ul MPV 9 (7.4-10.4) um3 Neut % (Auto) 81.9 (38-83) % Lymph % (Auto) 10.5 L (25-47) % [place] % (Auto) 7.0 (1-9) % Eos % (Auto) 0.3 (0-6) % Baso % (Auto) 0.3 (0-2) % Absolute Neuts (auto) 6.9 (1.5-7.7) 10^3/ul Absolute Lymphs (auto) 0.9 L (1.0-4.8) 10^3/ul Absolute Monos (auto) 0.6 (0-0.8) 10^3/ul Absolute Eos (auto) 0 (0-0.6) 10^3/ul Absolute Basos (auto) 0 (0-0.2) 10^3/ul Absolute Nucleated RBC 0 10^3/ul Nucleated RBC % 0 Sodium 135 (133-145) mmol/L Potassium 3.9 (3.5-5.0) mmol/L Chloride 103 (101-111) mmol/L Carbon Dioxide 28 (22-32) mmol/L Anion Gap 4 (2-11) mmol/L BUN 19 (6-24) mg/dL Creatinine 0.88 (0.67-1.17) mg/dL Est GFR ( Amer) 119.4 (>60) Est GFR (Non-Af Amer) 92.8 (>60) BUN/Creatinine Ratio 21.6 H (8-20) Glucose 88 (70-100) mg/dL Calcium 9.4 (8.6-10.3) mg/dL C-Reactive Protein 24.52 H (< 5.00) mg/L Assess/Plan/Problems-Billing Mr Fela Kim is a 46 yo M who has a h/o a bioprosthetic aortic valve replacement, h/o kayode syndrome and GERD who presented to the ER at the request of Dr. 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 - Patient Problems (1) Bacteremia Current Visit: Yes Status: Acute Code(s): R78.81 - BACTEREMIA SNOMED Code( s): 9991171 Comment: The patient is being treated for bioprosthetic aortic valve endocarditis. His blood cultures from prior to admission and at the time of admission are all positive for Strep viridans. Will plan on 6 weeks of IV Abx once his blood cultures clear. Will discuss Abx choice wiht Dr. Tijerina. (2) GERD (gastroesophageal reflux disease) Current Visit: Yes Status: Acute Code(s): K21.9 - GASTRO-ESOPHAGEAL REFLUX DISEASE WITHOUT ESOPHAGITIS SNOMED Code(s): 058613871 Comment: Continue famotidine. (3) DVT prophylaxis Current Visit: Yes Status: Acute Code(s): ZUT9101 - SNOMED Code(s): 525320727 Comment: Ambulation (4) Full code status Current Visit: Yes Status: Acute Code(s): Z78.9 - OTHER SPECIFIED HEALTH STATUS SNOMED Code(s): 269446973
[2016-09-23] MEDS: Vancomycin(*) 1,000 MG in NS 0.9% 250 ML* 250 ML IVPB SCH ×4 (02:13→20:43)
[2016-09-23] MEDS ORDERED: Vancomycin Trough Check NOTE FOLLOW UP ONE (07:30)
[2016-09-23] MEDS: Famotidine TAB* 20 MG PO SCH (09:08)
[2016-09-23] MEDS: Magnesium Oxide TAB* 400 MG PO SCH (09:08)
[2016-09-23] MEDS: Psyllium PAK PO SCH ×2 (09:08→20:10)
--- NOTE | 2016-09-23 11:15 | PN ---
Subjective Date of Service: 09/23/16 - CC: fevers/sweats (due to bacteremia+SBE). Interval History: Still getting some sweats and fevers, but more spread out and not as symptomatic. Occasional pain under the left clavicle persists, random onset per patient. Otherwise feeling well. Multiple questions including mechanism and implications of AI, pericarditis questions and correction prognosis of infection. Medications Active Medications: Acetaminophen (Tylenol Tab*) 650 mg PO Q6H PRN PRN Reason: PAIN Last Admin: 09/21/16 19:40 Dose: 650 mg Famotidine (Pepcid Tab*) 20 mg PO DAILY [facility] Last Admin: 09/23/16 09:08 Dose: 20 mg Ceftriaxone Sodium 2 gm/ (Sodium Chloride) 100 mls @ 200 mls/hr IVPB Q24H [facility] Last Admin: 09/22/16 19:30 Dose: 200 mls/hr Vancomycin HCl 1,000 mg/ (Sodium Chloride) 250 mls @ 166.667 mls/hr IVPB Q6H [facility] Last Admin: 09/23/16 09:09 Dose: 166.667 mls/hr Ibuprofen (Motrin Tab*) 600 mg PO Q6H PRN PRN Reason: pain/fever Last Admin: 09/22/16 20:21 Dose: 600 mg Magnesium Oxide (Magox 400 Tab*) 400 mg PO DAILY [facility] Last Admin: 09/23/16 09:08 Dose: 400 mg Pharmacy Consult (Vancomycin Per Pharmacy*) 1 note FOLLOW UP . PRN PRN Reason: PER PROTOCOL Psyllium Hydrophilic Mucilloid (Metamucil Alex*) 1 pkt PO BID [facility] Last Admin: 09/23/16 09:08 Dose: 1 pkt Objective Vital Signs: Temp Pulse Resp BP Pulse Ox 98.2 F 56 16 99/63 100 09/23/16 07:39 09/23/16 07:39 09/23/16 08:00 09/23/16 07:39 09/23/16 07:39 Oxygen Devices in Use Now: None Appearance: Lean fit appearing middle age male in NAD. Eyes: No Scleral Icterus, PERRLA Ears/Nose/Mouth/Throat: NL Teeth, Lips, Gums, Clear Oropharnyx, Mucous Membranes Moist Neck: NL Appearance and Movements; NL JVP, No Thyroid Enlargement, Masses Respiratory: Symmetrical Chest Expansion and Respiratory Effort, Clear to Auscultation Cardiovascular: NL Sounds; No Murmurs; No JVD, RRR - 2-3/6 systolic murmer and prominant diastolic murmer heard in RUSB with radiation. Lymphatic: No Cervical Adenopathy Extremities: No Edema, No Clubbing, Cyanosis Skin: No Rash or Ulcers, No Nodules or Sclerosis Neurological: Alert and Oriented x 3, NL Gait, NL Muscle Strength and Tone Laboratory Results: Total Bilirubin 0.80 mg/dL (0.2-1.0) 09/21/16 04:26 AST 15 U/L (13-39) 09/21/16 04:26 ALT 13 U/L (7-52) 09/21/16 04:26 Alkaline Phosphatase 89 U/L (34-104) 09/21/16 04:26 Total Protein 6.3 g/dL (6.4-8.9) L 09/21/16 04:26 Albumin 3.3 g/dL (3.2-5.2) 09/21/16 04:26 Globulin 3.0 g/dL (2-4) 09/21/16 04:26 Albumin/Globulin Ratio 1.1 (1-3) 09/21/16 04:26 Diagnostic Imaging: BC + Strep mutans. KATHI: bioprosthetic AVR with thickening of the leaflet and AI supportive of endocarditis. Assessment/Plan 46 yo athletic male 2+ years s/p bioprosthetic AVR with 2 months of fevers, sweats, malaise, blood culture + Strep. mutans getting aggressive antibiotic treatment for presumed bacterial endocarditis. Some symptomatic improvement. Questions answered, reassured the patient about progress. Cardiology is available inpatient PRN. Dr. Fletcher can follow up with patient after discharge.
--- NOTE | 2016-09-23 11:35 | PN ---
Subjective Date of Service: 09/23/16 Interval History: tele reviewed: no events Feels well, OOB walking yesterday. Back and shoulder pain on admission largely resolved No sweating, N/V, CP, SOB Appetite good, +bms Objective Active Medications: Acetaminophen (Tylenol Tab*) 650 mg PO Q6H PRN PRN Reason: PAIN Last Admin: 09/21/16 19:40 Dose: 650 mg Famotidine (Pepcid Tab*) 20 mg PO DAILY [facility] Last Admin: 09/23/16 09:08 Dose: 20 mg Ceftriaxone Sodium 2 gm/ (Sodium Chloride) 100 mls @ 200 mls/hr IVPB Q24H [facility] Last Admin: 09/22/16 19:30 Dose: 200 mls/hr Vancomycin HCl 1,000 mg/ (Sodium Chloride) 250 mls @ 166.667 mls/hr IVPB Q6H [facility] Last Admin: 09/23/16 09:09 Dose: 166.667 mls/hr Ibuprofen (Motrin Tab*) 600 mg PO Q6H PRN PRN Reason: pain/fever Last Admin: 09/22/16 20:21 Dose: 600 mg Magnesium Oxide (Magox 400 Tab*) 400 mg PO DAILY [facility] Last Admin: 09/23/16 09:08 Dose: 400 mg Pharmacy Consult (Vancomycin Per Pharmacy*) 1 note FOLLOW UP . PRN PRN Reason: PER PROTOCOL Psyllium Hydrophilic Mucilloid (Metamucil Alex*) 1 pkt PO BID [facility] Last Admin: 09/23/16 09:08 Dose: 1 pkt Vital Signs 09/22/16 09/22/16 09/22/16 11:32 15:48 19:34 Temperature 98.6 F 97.8 F Pulse Rate 55 59 Respiratory 16 17 16 Rate Blood Pressure 110/68 103/70 (mmHg) O2 Sat by Pulse 100 100 Oximetry 09/22/16 09/23/16 09/23/16 20:16 00:11 03:18 Temperature 99.1 F 98.4 F 98.1 F Pulse Rate 64 54 48 Respiratory 17 16 16 Rate Blood Pressure 106/61 101/66 96/57 (mmHg) O2 Sat by Pulse 100 100 100 Oximetry 09/23/16 09/23/16 07:39 08:00 Temperature 98.2 F Pulse Rate 56 Respiratory 18 16 Rate Blood Pressure 99/63 (mmHg) O2 Sat by Pulse 100 Oximetry Oxygen Devices in Use Now: None Appearance: NAD Eyes: No Scleral Icterus, PERRLA Ears/Nose/Mouth/Throat: NL Teeth, Lips, Gums, Clear Oropharnyx, Mucous Membranes Moist Neck: NL Appearance and Movements; NL JVP, Trachea Midline Respiratory: Symmetrical Chest Expansion and Respiratory Effort, Clear to Auscultation Cardiovascular: RRR, - - holosystolic diastolic murmur Abdominal: NL Sounds; No Tenderness; No Distention, No Hepatosplenomegaly Lymphatic: No Cervical Adenopathy Extremities: No Edema, No Clubbing, Cyanosis, - - 2+ pulses Skin: No Rash or Ulcers Neurological: Alert and Oriented x 3 Result Diagrams: 09/21/16 04:26 09/21/16 04:26 Additional Lab and Data: Lab Results 09/20/16 09/20/16 Range/Units 17:05 17:05 WBC 8.4 (3.5-10.8) 10^3/ul RBC 4.08 (4.0-5.4) 10^6/ul Hgb 11.2 L (14.0-18.0) g/dl Hct 34 L (42-52) % MCV 83 (80-94) fL MCH 27 (27-31) pg MCHC 33 (31-36) g/dl RDW 14 (10.5-15) % Plt Count 160 (150-450) 10^3/ul MPV 9 (7.4-10.4) um3 Neut % (Auto) 81.9 (38-83) % Lymph % (Auto) 10.5 L (25-47) % [place] % (Auto) 7.0 (1-9) % Eos % (Auto) 0.3 (0-6) % Baso % (Auto) 0.3 (0-2) % Absolute Neuts (auto) 6.9 (1.5-7.7) 10^3/ul Absolute Lymphs (auto) 0.9 L (1.0-4.8) 10^3/ul Absolute Monos (auto) 0.6 (0-0.8) 10^3/ul Absolute Eos (auto) 0 (0-0.6) 10^3/ul Absolute Basos (auto) 0 (0-0.2) 10^3/ul Absolute Nucleated RBC 0 10^3/ul Nucleated RBC % 0 Sodium 135 (133-145) mmol/L Potassium 3.9 (3.5-5.0) mmol/L Chloride 103 (101-111) mmol/L Carbon Dioxide 28 (22-32) mmol/L Anion Gap 4 (2-11) mmol/L BUN 19 (6-24) mg/dL Creatinine 0.88 (0.67-1.17) mg/dL Est GFR ( Amer) 119.4 (>60) Est GFR (Non-Af Amer) 92.8 (>60) BUN/Creatinine Ratio 21.6 H (8-20) Glucose 88 (70-100) mg/dL Calcium 9.4 (8.6-10.3) mg/dL C-Reactive Protein 24.52 H (< 5.00) mg/L Microbiology and Other Data: Microbiology 09/22/16 05:00 Aerobic Blood Culture - Preliminary Blood Venous No Growth Day 1 Anaerobic Blood Culture - Preliminary No Growth Day 1 Assess/Plan/Problems-Billing Mr Flea Kim is a 46 yo M who has a 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 - Patient Problems (1) Infective endocarditis Comment: Blood cultures 09/[address] request for PICC line Pt thinks he would rather receive abx at the infusion center. He will consider this vs. home infusion c/w CTX and vancomycin. IE based on KATHI, positive blood cultures, aortic insufficiency (2) GERD (gastroesophageal reflux disease) Comment: Continue famotidine. (3) Bradycardia Comment: generally very active. Training for marathon prior to AVR. Suspect in setting of conditioned stated. Monitor. Check EKG for persistent leonila or change in rhythm or symptoms (4) DVT prophylaxis Comment: Ambulation
[2016-09-23] MEDS: Ibuprofen TAB* 600 MG PO PRN (14:30)
[2016-09-24] MEDS: Ibuprofen TAB* 600 MG PO PRN ×2 (00:27→15:44)
[2016-09-24] MEDS: Vancomycin(*) 1,000 MG in NS 0.9% 250 ML* 250 ML IVPB SCH ×4 (02:07→20:44)
[2016-09-24] MEDS: Psyllium PAK PO SCH ×2 (08:57→20:49)
[2016-09-24] MEDS: Famotidine TAB* 20 MG PO SCH (08:57)
[2016-09-24] MEDS: Magnesium Oxide TAB* 400 MG PO SCH (08:57)
--- NOTE | 2016-09-24 11:04 | PN ---
Subjective Date of Service: 09/24/16 Interval History: [place] chest discomfort overnight radiating to b/l shoulders similar to sensation he had prior to starting abx. Did not have associated symptoms. Resolved without intervention. Does not occur when walking around unit. Objective Active Medications: Acetaminophen (Tylenol Tab*) 650 mg PO Q6H PRN PRN Reason: PAIN Last Admin: 09/21/16 19:40 Dose: 650 mg Famotidine (Pepcid Tab*) 20 mg PO DAILY [facility] Last Admin: 09/24/16 08:57 Dose: 20 mg Ceftriaxone Sodium 2 gm/ (Sodium Chloride) 100 mls @ 200 mls/hr IVPB Q24H [facility] Last Admin: 09/23/16 19:07 Dose: 200 mls/hr Vancomycin HCl 1,000 mg/ (Sodium Chloride) 250 mls @ 166.667 mls/hr IVPB Q6H [facility] Last Admin: 09/24/16 08:56 Dose: 166.667 mls/hr Ibuprofen (Motrin Tab*) 600 mg PO Q6H PRN PRN Reason: pain/fever Last Admin: 09/24/16 00:27 Dose: 600 mg Magnesium Oxide (Magox 400 Tab*) 400 mg PO DAILY [facility] Last Admin: 09/24/16 08:57 Dose: 400 mg Pharmacy Consult (Vancomycin Per Pharmacy*) 1 note FOLLOW UP . PRN PRN Reason: PER PROTOCOL Pharmacy Profile Note (Vancomycin Trough Check) 1 note FOLLOW UP 0800 ONE Stop: 09/25/16 08:01 Psyllium Hydrophilic Mucilloid (Metamucil Alex*) 1 pkt PO BID [facility] Last Admin: 09/24/16 08:57 Dose: 1 pkt Vital Signs 09/23/16 09/23/16 09/23/16 13:04 15:14 19:32 Temperature 98.8 F 98.9 F 98.6 F Pulse Rate 63 61 54 Respiratory 18 18 16 Rate Blood Pressure 109/68 98/65 102/62 (mmHg) O2 Sat by Pulse 100 100 99 Oximetry 09/23/16 09/24/16 09/24/16 19:38 00:02 03:19 Temperature 99.7 F 97.5 F Pulse Rate 57 48 Respiratory 16 16 16 Rate Blood Pressure 105/61 93/57 (mmHg) O2 Sat by Pulse 100 100 Oximetry 09/24/16 09/24/16 07:39 08:00 Temperature 97.7 F Pulse Rate 58 Respiratory 18 16 Rate Blood Pressure 116/71 (mmHg) O2 Sat by Pulse 100 Oximetry Oxygen Devices in Use Now: None Appearance: NAD Eyes: No Scleral Icterus, PERRLA Ears/Nose/Mouth/Throat: NL Teeth, Lips, Gums, Mucous Membranes Moist Neck: NL Appearance and Movements; NL JVP, Trachea Midline, No Thyroid Enlargement, Masses Respiratory: Symmetrical Chest Expansion and Respiratory Effort, Clear to Auscultation Cardiovascular: RRR, - - 2/6 diastolic rumbling murmur Abdominal: NL Sounds; No Tenderness; No Distention, No Hepatosplenomegaly Lymphatic: No Cervical Adenopathy Extremities: No Edema Skin: No Rash or Ulcers Neurological: Alert and Oriented x 3 Result Diagrams: 09/21/16 04:26 09/21/16 04:26 Additional Lab and Data: Lab Results 09/20/16 09/20/16 Range/Units 17:05 17:05 WBC 8.4 (3.5-10.8) 10^3/ul RBC 4.08 (4.0-5.4) 10^6/ul Hgb 11.2 L (14.0-18.0) g/dl Hct 34 L (42-52) % MCV 83 (80-94) fL MCH 27 (27-31) pg MCHC 33 (31-36) g/dl RDW 14 (10.5-15) % Plt Count 160 (150-450) 10^3/ul MPV 9 (7.4-10.4) um3 Neut % (Auto) 81.9 (38-83) % Lymph % (Auto) 10.5 L (25-47) % [place] % (Auto) 7.0 (1-9) % Eos % (Auto) 0.3 (0-6) % Baso % (Auto) 0.3 (0-2) % Absolute Neuts (auto) 6.9 (1.5-7.7) 10^3/ul Absolute Lymphs (auto) 0.9 L (1.0-4.8) 10^3/ul Absolute Monos (auto) 0.6 (0-0.8) 10^3/ul Absolute Eos (auto) 0 (0-0.6) 10^3/ul Absolute Basos (auto) 0 (0-0.2) 10^3/ul Absolute Nucleated RBC 0 10^3/ul Nucleated RBC % 0 Sodium 135 (133-145) mmol/L Potassium 3.9 (3.5-5.0) mmol/L Chloride 103 (101-111) mmol/L Carbon Dioxide 28 (22-32) mmol/L Anion Gap 4 (2-11) mmol/L BUN 19 (6-24) mg/dL Creatinine 0.88 (0.67-1.17) mg/dL Est GFR ( Amer) 119.4 (>60) Est GFR (Non-Af Amer) 92.8 (>60) BUN/Creatinine Ratio 21.6 H (8-20) Glucose 88 (70-100) mg/dL Calcium 9.4 (8.6-10.3) mg/dL C-Reactive Protein 24.52 H (< 5.00) mg/L Microbiology and Other Data: Microbiology 09/22/16 05:00 Aerobic Blood Culture - Preliminary Blood Venous No Growth Day 1 Anaerobic Blood Culture - Preliminary No Growth Day 1 Assess/Plan/Problems-Billing Mr Fela Kim is a 46 yo M who has a 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 - Patient Problems (1) Infective endocarditis Comment: Blood cultures from 09/22 [address] request for PICC line Pt thinks he would rather receive abx at the infusion center. He will consider this vs. home infusion c/w CTX and vancomycin. IE based on KATHI, positive blood cultures, aortic insufficiency (2) GERD (gastroesophageal reflux disease) Comment: Continue famotidine. (3) Bradycardia Comment: generally very active. Training for marathon prior to AVR. Suspect in setting of conditioned stated. Monitor. Check EKG for persistent leonila or change in rhythm or symptoms (4) DVT prophylaxis Comment: Ambulation
[2016-09-25] MEDS: Vancomycin(*) 1,000 MG in NS 0.9% 250 ML* 250 ML IVPB SCH ×2 (02:12→08:42)
[2016-09-25] MEDS ORDERED: Vancomycin Trough Check NOTE FOLLOW UP ONE (08:00)
[2016-09-25] MEDS: Psyllium PAK PO SCH (09:40)
[2016-09-25] MEDS: Magnesium Oxide TAB* 400 MG PO SCH (09:40)
[2016-09-25] MEDS: Famotidine TAB* 20 MG PO SCH (09:40)
[2016-09-25] MEDS ORDERED: Vancomycin(*) 1,000 MG in NS 0.9% 250 ML* 250 ML IVPB SCH (10:00)
--- NOTE | 2016-09-25 12:11 | PN ---
Progress Note - Progress Note SOAP: Subjective: DOS: 09/25/16 CC: endocarditis HPI: 46 yo man with bioprosthetic AVR now with fever for 6 weeks and bacteremia. Fever and aches resolved. No rash or diarrhea. Energy and appetite improving. Objective: [] Vital Signs Temp 36.2 C 09/25/16 07:28 Pulse 55 09/25/16 07:28 Resp 14 09/25/16 07:35 BP 94/78 09/25/16 07:28 Pulse Ox 100 09/25/16 07:28 Intake & Output 09/24/16 09/25/16 09/25/16 18:59 06:59 18:59 Intake Total 840 1210 240 Balance 840 1210 240 Intake: IV Fluids 55 ABX - CEFTRIAXONE 20 ABX - VANCOMYCIN 35 IVPB 520 555 ABX - CEFTRIAXONE 110 ABX - VANCOMYCIN 520 445 Oral 320 600 240 Other: # Bowel Movements 0 # Voids 0 Gen:Awake, no distress HEENT:PERRL, MMM Neck:supple Heart:RRR 2/6 murmur Lungs:CTA BL Abd:+BS NTND soft Skin: no rash Sodium 134 mmol/L (133-145) 09/21/16 04:26 Potassium 3.7 mmol/L (3.5-5.0) 09/21/16 04:26 BUN 16 mg/dL (6-24) 09/21/16 04:26 Creatinine 0.81 mg/dL (0.67-1.17) 09/21/16 04:26 Calcium 9.0 mg/dL (8.6-10.3) 09/21/16 04:26 AST 15 U/L (13-39) 09/21/16 04:26 ALT 13 U/L (7-52) 09/21/16 04:26 Assessment: 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 Strep mutans bacteremia due to #1, resolved 3. bioprosthetic aortic valve with mild/mod regurgitation Plan: []1. ceftriaxone 2gm IV Q24 hrs for 6 weeks, KATHI in 4-5 weeks. Orders written for weekly CBC, CMP, CRP, fu with me [address] Grullon
[2016-09-25 12:16] VITALS: BP 129/72
--- NOTE | 2016-09-26 16:39 | DS ---
DISCHARGE SUMMARY: DATE OF ADMISSION: 09/20/16. DATE OF DISCHARGE: 09/25/16. PRIMARY CARE PROVIDER: Dr. Reis. INFECTIOUS DISEASE: Dr. Tijerina. PRIMARY DIAGNOSES: Bioprosthetic valve, Streptococcal viridans endocarditis. SECONDARY DIAGNOSES: Include: 1. Bradycardia. 2. Gastroesophageal reflux disease. 3. History of Deborah syndrome. 4. History of aortic valve replacement. MEDICATIONS AT DISCHARGE: 1. Magnesium 400 mg daily. 2. Ibuprofen 400 mg every 6 hours. 3. Mineral and multivitamin 1 tab daily. 4. Glucosamine/chondroitin/vitamin C 1 tab daily. 5. Psyllium with calcium 1 cap twice daily. 6. Potassium 75 mg daily. 7. Famotidine 20 mg daily. 8. Colchicine 0.6 mg daily as needed. 9. [place] 3 fatty acid 1000 mg daily. 10. Ceftriaxone 2 g daily to be infused at infusion center. PROCEDURES PERFORMED DURING HOSPITAL STAY: Transesophageal echocardiogram. Impression. Aortic valve, there is mild to moderate aortic regurgitation and it is intervalvular. There is no paravalvular regurgitation. There is at least mild thickening of the bioprosthetic leaflet adjacent to the left atrium. This was not present on prior KATHI. In the setting of positive blood cultures, this could be consistent with infective endocarditis. The mean gradient in the aortic valve is 46 mmHg. The peak velocity is 4.3 m/second. There is a #21 [place] tissue valve bioprosthetic by history. Findings most consistent with patient's prosthesis mismatch. 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 The estimated LVEF is 60% to 65%, left atrium is mildly dilated. The right ventricular chamber size and systolic were within normal limits. PERTINENT MICROBIOLOGY: Four sets of blood culture positive for Strep mutans. Pansensitive to all antibiotics tested. HISTORY OF PRESENT ILLNESS AND HOSPITAL COURSE: This is a 46-year-old man with past medical history of severe aortic stenosis, secondary to bicuspid aortic valve, underwent valve replacement in 2013, complicated by several episodes of Deborah syndrome or developed fevers as well as midsternal and back discomfort. Blood cultures drawn returned positive concerning for bacterial endocarditis. He was admitted to the hospital, started on vancomycin and cefepime. Vancomycin was stopped when cultures returned pansensitive. He improved with antibiotics, fevers abated and his blood cultures cleared. His last fever was 101.2 degrees on 09/21/16 4 days prior to discharge. A PICC line was placed and the patient will continue to receive ceftriaxone for 6 weeks as an outpatient in the infusion center. During the course of the hospital stay, the patient's heart rate was noted to be persistently in the 40s through 60s, off of his metoprolol. Metoprolol was held at the time of discharge. On the day of discharge, the patient was interactive, ___pleasant___ in no apparent distress, walking around the unit. He had a diastolic rumbling, murmur , indicative of aortic insufficiency. INSTRUCTIONS: At followup, please: 1. Follow weekly labs, CMP, CBC, CRP. 2. Follow heart rate, restart metoprolol if necessary. 3. Follow up fevers, otherwise no other specific labs or vitals that need followup. Reasons to return to the hospital include, but not limited to recurrent worsening of symptoms, fevers, chills, night sweat, chest pain, shortness of breath, nausea, vomiting, lightheadedness, or palpitations, loss of consciousness, near loss of consciousness, bleeding from any source, inability the obtain or tolerate medications were discussed with the patient, he acknowledged understanding. TIME SPENT: Greater than 60 minutes was spent on the discharge of this patient with greater than half the time was spent [id number] with the patient and his family. CC: Dr. Reis; Dr. Tijerina* [id number]/[facility] #: [id number] MTDD
== END 2016-09-25 14:45 | disposition home or self-care (01) | DRG 314 ==
LOC: ED 16:28 → MEDTELE 17:52 → OBSVTOIN 09-21 13:00
PROVIDERS: ADMIT Hospitalist; ATTEND Internal Medicine
PROC: B24BZZ4 Ultrasonography of Heart with Aorta, Transesophageal (ICD-10-PCS; principal; 2016-09-21 10:15)
PROC: 02HV33Z Insertion of Infusion Device into Superior Vena Cava, Percutaneous Approach (ICD-10-PCS; 2016-09-25)
DX: T82.6XXA Infection and inflammatory reaction due to cardiac valve prosthesis, initial encounter (principal); I33.0 Acute and subacute infective endocarditis; I71.2 Thoracic aortic aneurysm, without rupture; T82.897A Other specified complication of cardiac prosthetic devices, implants and grafts, initial encounter; R78.81 Bacteremia; K21.9 Gastro-esophageal reflux disease without esophagitis; R00.1 Bradycardia, unspecified; Y71.2 Prosthetic and other implants, materials and accessory cardiovascular devices associated with adverse incidents; B95.4 Other streptococcus as the cause of diseases classified elsewhere; I35.1 Nonrheumatic aortic (valve) insufficiency; Z88.0 Allergy status to penicillin; Z95.2 Presence of prosthetic heart valve; Y92.9 Unspecified place or not applicable
CPT/HCPCS: 36415; 80048; 80053; 80202; 85025; 86140; 87040; 87205; 93005; 93312; 93325; A9270-GY; C1751; G0378; J0696; J2250; J3010; J3370

== ENCOUNTER 2021-03-24 15:03 | Inpatient (IN) ==
[2021-03-24 16:45] LABS: ABS Basophils 0.1 10^3/ul (0-0.2); ABS Lymphocytes 0.7 10^3/ul (1.0-4.8); ABS Monocytes 0.5 10^3/ul (0-0.8); Eosinophil % 0.1 %; Hematocrit 32 % (42-52); Hemoglobin 11.4 g/dL (14.0-18.0); Lymphocyte % 8.5 %; Mean Corpuscular HGB Conc 35 g/dL (31-36); Mean Corpuscular Hemoglobin 30 pg (27-31); Mean Corpuscular Volume 85 fL (80-94); Mean Platelet Volume 8.4 fL (7.4-10.4); Platelet Count 161 10^3/uL (150-450); Red Blood Count 3.83 10^6 /uL (4.18-5.48); Red Cell Distribution Width 13 % (10-15); White Blood Count 8.4 10^3/uL (3.5-10.8)
[2021-03-24] MEDS ORDERED: Vancomycin 1,500 MG in NS 0.9% 250 ml 250 ML IVPB ONE (16:57)
[2021-03-24 17:04] LABS: ALT 29 U/L (7-52); AST 19 U/L (13-39); Albumin 3.9 g/dL (3.2-5.2); Albumin/Globulin Ratio 1.4 (1-3); Alkaline Phosphatase 80 U/L (35-149); Anion Gap 4 mmol/L (2-11); Blood Urea Nitrogen 16 mg/dL (6-24); C Reactive Protein 74.84 mg/L (<8.01); CO2 Carbon Dioxide 27 mmol/L (22-32); Calcium 9.3 mg/dL (8.6-10.3); Chloride 105 mmol/L (101-111); Globulin 2.7 g/dL (2-4); Glucose 97 mg/dL (70-100); Potassium 3.6 mmol/L (3.5-5.0); Sodium 136 mmol/L (135-145); Total Protein 6.6 g/dL (6.4-8.9)
[2021-03-24 17:08] LABS: Troponin I 0.07 ng/mL (<0.03)
[2021-03-24] MEDS ORDERED: NS 0.9% 250 ml 250 ML ONE (17:26)
[2021-03-24] MEDS: Enoxaparin 40 MG/0.4 ML SYR SUBCUT SCH (20:38)
[2021-03-24 21:03] LABS: Rapid COVID-19 Molecular Undetected (Undetected)
[2021-03-24] MEDS: cefTRIAXone 2 GM ADDV.VIAL 2 GM in NS 0.9% 100 ml BAG 100 ML IV SCH (22:42)
[2021-03-25 00:08] LABS: Troponin I 0.03 ng/mL (<0.03)
[2021-03-25 06:57] LABS: ABS Basophils 0.1 10^3/ul (0-0.2); ABS Lymphocytes 0.9 10^3/ul (1.0-4.8); ABS Monocytes 0.6 10^3/ul (0-0.8); ABS Neutrophils 5.2 10^3/ul (1.5-7.7); Eosinophil % 0.4 %; Hematocrit 30 % (42-52); Hemoglobin 10.8 g/dL (14.0-18.0); Lymphocyte % 13.8 %; Mean Corpuscular HGB Conc 36 g/dL (31-36); Mean Corpuscular Hemoglobin 31 pg (27-31); Mean Corpuscular Volume 84 fL (80-94); Mean Platelet Volume 9.3 fL (7.4-10.4); Nucleated Red Blood Cells % 0.2; Platelet Count 139 10^3/uL (150-450); Red Blood Count 3.53 10^6 /uL (4.18-5.48); Red Cell Distribution Width 13 % (10-15); White Blood Count 6.9 10^3/uL (3.5-10.8)
[2021-03-25 07:16] LABS: Anion Gap 4 mmol/L (2-11); Blood Urea Nitrogen 15 mg/dL (6-24); C Reactive Protein 68.39 mg/L (<8.01); CO2 Carbon Dioxide 28 mmol/L (22-32); Chloride 105 mmol/L (101-111); Glucose 90 mg/dL (70-100); Potassium 3.7 mmol/L (3.5-5.0); Sodium 137 mmol/L (135-145)
[2021-03-25 07:20] LABS: Troponin I 0.03 ng/mL (<0.03)
[2021-03-25] MEDS: Aspirin EC 81 mg TAB.EC (enteric coated) PO SCH (07:53)
[2021-03-25] MEDS ORDERED: Ondansetron 4 mg VIAL 2 MG/ML 2 ml VIAL IV PRN (08:50)
[2021-03-25] MEDS ORDERED: fentaNYL 100 mcg/2 ml 50 MCG/ML VIAL ONE (14:21)
[2021-03-25] MEDS ORDERED: Flumazenil 0.5 mg/5 ml 0.1 MG/ML 5 ml VIAL ONE (14:21)
[2021-03-25] MEDS ORDERED: Naloxone 0.4 mg VIAL 0.4 mg/ml 1 ml VIAL ONE (14:21)
[2021-03-25] MEDS ORDERED: Midazolam 5 mg/5 ml VIAL 1 mg/ml 5 ml VIAL (5 mg) ONE (14:21)
[2021-03-25] MEDS: cefTRIAXone 2 GM ADDV.VIAL 2 GM in NS 0.9% 100 ml BAG 100 ML IV SCH (21:22)
[2021-03-25] MEDS: Enoxaparin 40 MG/0.4 ML SYR SUBCUT SCH (21:22)
[2021-03-26 06:43] LABS: ABS Monocytes 0.5 10^3/ul (0-0.8); ABS Neutrophils 5.3 10^3/ul (1.5-7.7); Eosinophil % 0.2 %; Hematocrit 30 % (42-52); Hemoglobin 11.1 g/dL (14.0-18.0); Lymphocyte % 15.2 %; Mean Corpuscular HGB Conc 37 g/dL (31-36); Mean Corpuscular Hemoglobin 31 pg (27-31); Mean Corpuscular Volume 83 fL (80-94); Platelet Count 151 10^3/uL (150-450); Red Blood Count 3.63 10^6 /uL (4.18-5.48); Red Cell Distribution Width 13 % (10-15); White Blood Count 6.8 10^3/uL (3.5-10.8)
[2021-03-26 07:10] LABS: Calcium 9.2 mg/dL (8.6-10.3); Magnesium 1.9 mg/dL (1.9-2.7); Potassium 3.9 mmol/L (3.5-5.0)
[2021-03-26] MEDS: Aspirin EC 81 mg TAB.EC (enteric coated) PO SCH (07:57)
[2021-03-26] MEDS ORDERED: Magnesium Sulfate IV 1GM/100ML 1 GM/100 ML BAG IV ONE (09:41)
[2021-03-26] MEDS ORDERED: Potassium Chlor 20 meq TAB.ER PO ONE (09:41)
[2021-03-26] MEDS: cefTRIAXone 2 GM ADDV.VIAL 2 GM in NS 0.9% 100 ml BAG 100 ML IV SCH (21:04)
[2021-03-26] MEDS: Enoxaparin 40 MG/0.4 ML SYR SUBCUT SCH (21:04)
[2021-03-27 06:06] LABS: ABS Basophils 0.1 10^3/ul (0-0.2); ABS Monocytes 0.6 10^3/ul (0-0.8); ABS Neutrophils 5.6 10^3/ul (1.5-7.7); Eosinophil % 0.3 %; Hematocrit 33 % (42-52); Lymphocyte % 13.5 %; Mean Corpuscular HGB Conc 36 g/dL (31-36); Mean Corpuscular Hemoglobin 30 pg (27-31); Mean Corpuscular Volume 83 fL (80-94); Mean Platelet Volume 9.1 fL (7.4-10.4); Nucleated Red Blood Cells % 0.1; Platelet Count 169 10^3/uL (150-450); Red Blood Count 3.97 10^6 /uL (4.18-5.48); Red Cell Distribution Width 13 % (10-15); White Blood Count 7.2 10^3/uL (3.5-10.8)
[2021-03-27 06:18] LABS: Calcium 9.4 mg/dL (8.6-10.3); Magnesium 2.1 mg/dL (1.9-2.7); Potassium 3.8 mmol/L (3.5-5.0)
[2021-03-27] MEDS: Aspirin EC 81 mg TAB.EC (enteric coated) PO SCH (08:47)
[2021-03-27] MEDS: Enoxaparin 40 MG/0.4 ML SYR SUBCUT SCH (21:01)
[2021-03-27] MEDS: cefTRIAXone 2 GM ADDV.VIAL 2 GM in NS 0.9% 100 ml BAG 100 ML IV SCH (21:02)
[2021-03-28] MEDS: Aspirin EC 81 mg TAB.EC (enteric coated) PO SCH (08:45)
[2021-03-28 11:38] VITALS: BP 119/78
[2021-03-28] MEDS ORDERED: cefTRIAXone 2 GM ADDV.VIAL 2 GM in NS 0.9% 100 ml BAG 100 ML IV ONE (15:00)
== END 2021-03-28 15:44 | disposition home or self-care (01) | DRG 871 ==
LOC: ED 15:03 → SUATTDRO 19:41 → MEDTELE 19:41
PROVIDERS: ADMIT Internal Medicine; ATTEND Internal Medicine

== ENCOUNTER 2021-07-19 14:00 | Observation (INO) ==
[2021-07-19 14:52] LABS: ABS Monocytes 0.3 10^3/ul (0-0.8); ABS Neutrophils 4.4 10^3/ul (1.5-7.7); Eosinophil % 0.7 %; Hematocrit 41 % (42-52); Lymphocyte % 17.6 %; Mean Corpuscular HGB Conc 35 g/dL (31-36); Mean Corpuscular Hemoglobin 28 pg (27-31); Mean Corpuscular Volume 82 fL (80-94); Mean Platelet Volume 10.4 fL (7.4-10.4); Nucleated Red Blood Cells % 0.1; Platelet Count 112 10^3/uL (150-450); Red Blood Count 4.98 10^6 /uL (4.18-5.48); Red Cell Distribution Width 15 % (10-15); White Blood Count 5.7 10^3/uL (3.5-10.8)
[2021-07-19 15:01] LABS: INR 1.08 (0.86-1.15)
[2021-07-19 15:11] LABS: ALT 14 U/L (7-52); AST 22 U/L (13-39); Albumin 4.1 g/dL (3.2-5.2); Albumin/Globulin Ratio 1.8 (1-3); Alkaline Phosphatase 68 U/L (35-149); Anion Gap 6 mmol/L (2-11); Blood Urea Nitrogen 21 mg/dL (6-24); CO2 Carbon Dioxide 23 mmol/L (22-32); Calcium 9.5 mg/dL (8.6-10.3); Chloride 109 mmol/L (101-111); Globulin 2.3 g/dL (2-4); Glucose 135 mg/dL (70-100); Potassium 4.2 mmol/L (3.5-5.0); Sodium 138 mmol/L (135-145); Total Protein 6.4 g/dL (6.4-8.9); eGFR CKD-EPI 89.5 (>60)
[2021-07-19 15:14] LABS: Troponin I 0.04 ng/mL (<0.03)
[2021-07-19 17:31] LABS: Troponin I 0.04 ng/mL (<0.03)
[2021-07-19] MEDS ORDERED: Furosemide 20 mg/2 ml IV VIAL IV ONE (20:10)
[2021-07-19] MEDS ORDERED: Psyllium PAK PO PRN ×2 (20:12→20:35)
[2021-07-19] MEDS ORDERED: Hemorrhoidal OINT 1 TUBE PR PRN ×2 (20:12→20:35)
[2021-07-19 20:46] LABS: C Reactive Protein < 1.00 mg/L (<8.01)
[2021-07-19] MEDS ORDERED: Aspirin EC 81 mg TAB.EC (enteric coated) PO SCH ×2 (21:00)
[2021-07-19 21:30] LABS: Troponin I 0.04 ng/mL (<0.03)
[2021-07-21] MEDS ORDERED: Naloxone 0.4 mg VIAL 0.4 mg/ml 1 ml VIAL ONE (08:47)
[2021-07-21] MEDS ORDERED: Flumazenil 0.5 mg/5 ml 0.1 MG/ML 5 ml VIAL ONE (08:47)
[2021-07-21] MEDS ORDERED: Midazolam 5 mg/5 ml VIAL 1 mg/ml 5 ml VIAL (5 mg) ONE (08:47)
[2021-07-21] MEDS ORDERED: fentaNYL 100 mcg/2 ml 50 MCG/ML VIAL ONE (08:47)
[2021-07-21] MEDS ORDERED: Potassium Chlor 10 meq TAB PO ONE (09:40)
[2021-07-21] MEDS ORDERED: Furosemide 40 mg/4 ml IV VIAL IV ONE (09:40)
[2021-07-21] MEDS ORDERED: Furosemide 20 mg/2 ml IV VIAL ONE (10:14)
[2021-07-21 15:19] LABS: Calcium 9.7 mg/dL (8.6-10.3); Potassium 3.7 mmol/L (3.5-5.0)
[2021-07-21 16:19] VITALS: BP 121/59
[2021-07-21] MEDS ORDERED: Potassium Chlor 20 meq TAB.ER PO ONE (16:20)
== END 2021-07-21 17:28 | disposition home or self-care (01) ==
LOC: ED 14:00 → MEDTELE 14:00 → ED 20:18
PROVIDERS: ADMIT Internal Medicine; ATTEND Internal Medicine